=== PATIENT | female | born 1995 | race Caucasian/White ===

== ENCOUNTER 2016-07-05 18:01 | Outpatient (CLI) | payer BC, MEDICAID ==
[~2016-07-05] VITALS: Ht 170.2 cm; Wt 62.3 kg
[~2016-07-05 18:01] MED LIST: LEXAPRO20 MG PO; MOTRIN 800800 MG/TAB PO; PERCOCET 325 MG1 TA2 PO; PRENATAL1 TA7 PO; TAMIFLU 75MG75 MG PO
[2016-07-05 18:37] VITALS: BP 117/74; PULSE 92; TEMP 97.8
[2016-07-05] MEDS ORDERED: LEXAPRO 10MG10 MG (18:45)
== END 2016-07-05 19:00 | disposition home or self-care (01) ==
LOC: LDRO 18:01
DX: Z03.71 Encounter for suspected problem with amniotic cavity and membrane ruled out (principal); Z87.891 Personal history of nicotine dependence

== ENCOUNTER → 2016-08-28 | Outpatient (CLI) | payer BC, MEDICAID ==
[~2016-08-28] VITALS: Ht 170.2 cm; Wt 68.2 kg
[~2016-08-28] MED LIST changes: +AMOXICILLIN 8751 TAB PO; +ASACOL HD800 MG PO; +AZULFIDINE500 MG/TAB PO; +IBU600 MG PO; +LEXAPRO 10MG10 MG; +NORCO 325 MG-51 TAB PO; +PREDNISONE20 MG PO; +TYLENOL 325MG325 MG PO
[2016-08-28 01:30] VITALS: BP 115/65; PULSE 88
[2016-08-28 01:39] VITALS: BP 131/82; PULSE 87; TEMP 98.4
[2016-08-28 02:00] VITALS: BP 123/75; PULSE 78
== END ==
LOC: LDRO 00:49
DX: O47.03 False labor before 37 completed weeks of gestation, third trimester (principal); Z3A.36 36 weeks gestation of pregnancy; Z87.891 Personal history of nicotine dependence

== ENCOUNTER 2016-09-08 16:12 | Inpatient (IN) | payer BC, MEDICAID ==
[2016-09-08] VITALS (24 sets, daily range): BP systolic 99–148; BP diastolic 54–84; PULSE 76–125; TEMP 97.7
[~2016-09-08] VITALS: Ht 170.2 cm; Wt 69.5 kg
[~2016-09-08 16:12] MED LIST changes: -AMOXICILLIN 8751 TAB PO; -ASACOL HD800 MG PO; -AZULFIDINE500 MG/TAB PO; -IBU600 MG PO; -NORCO 325 MG-51 TAB PO; -PREDNISONE20 MG PO; -TYLENOL 325MG325 MG PO
[2016-09-08 18:00] LABS: BASO % 0.4 % (0.0-2.0); EOS # 0.1 (0.0-0.7); EOS % 0.6 % (0-4.0); GRAN # 6.9 (1.4-6.5); GRAN % 63.9 % (42.2-75.2); LYMPH % 27.9 % (20.0-51.0); MEAN CELL VOLUME 81 fl (80.0-100.0); MEAN CORPUSCULAR HGB CONC 30 g/dl (33.0-37.0); MEAN PLATELET VOLUME 12.1 fl (7.4-10.4); MONO # 0.7 (0.1-0.6); MONO % 6.7 % (1.7-9.3); PLATELET COUNT 171 K/mm3 (130-400); RED BLOOD COUNT 3.83 M/mm3 (4.10-5.30); REDCELL DISTRIBUTION WIDTH-CV 15.8 % (11.5-14.5); WHITE BLOOD COUNT 10.8 K/mm3 (4.8-10.8)
[2016-09-08 18:21] LABS: HEMATOCRIT 30.9 % (37.0-47.0); HEMOGLOBIN 9.3 g/dl (12.5-16.0); MEAN CORPUSCULAR HEMOGLOBIN 24 pg (27.0-31.0)
[2016-09-09] VITALS (7 sets, daily range): BP systolic 114–145; BP diastolic 69–81; PULSE 75–115; TEMP 97.9–99.2
[2016-09-09 08:34] LABS: HEMATOCRIT 27.7 % (37.0-47.0); HEMOGLOBIN 8.2 g/dl (12.5-16.0)
[2016-09-10 07:50] VITALS: BP 130/70; PULSE 98; TEMP 98.6
[2016-09-10] MEDS ORDERED: PERCOCET 325 MG1 TA2 PO (08:37)
[2016-09-10] MEDS ORDERED: IBU600 MG PO (08:37)
== END 2016-09-10 11:30 | disposition home or self-care (01) | DRG 767 ==
LOC: LDRO 16:12 → OB 17:45 → LDR 17:45 → OB 09-09 00:30
PROVIDERS: Obstetrics & Gynecology
PROC: 10E0XZZ Delivery of Products of Conception, External Approach (ICD-10-PCS; principal; 2016-09-09)
PROC: 10D17ZZ Extraction of Products of Conception, Retained, Via Natural or Artificial Opening (ICD-10-PCS; 2016-09-09)
DX: O77.0 Labor and delivery complicated by meconium in amniotic fluid (principal); O72.2 Delayed and secondary postpartum hemorrhage; O99.02 Anemia complicating childbirth; D64.9 Anemia, unspecified; Z3A.38 38 weeks gestation of pregnancy; Z37.0 Single live birth
CPT/HCPCS: J2210; J2590; J7120

== ENCOUNTER 2016-11-22 12:17 | Inpatient (IN) | payer MEDICAID ==
[~2016-11-22] VITALS: Ht 170.2 cm; Wt 59.5 kg
[~2016-11-22 12:17] MED LIST changes: +IBU600 MG PO
[2016-11-22 13:01] LABS: PH 6 (5-8); SQUAMOUS EPITHELIAL 0-2 /hpf; URINE APPEARANCE Clear; URINE BACTERIA None Seen /hpf; URINE BILIRUBIN Negative (NEGATIVE); URINE BLOOD Negative (NEGATIVE); URINE COLOR Straw; URINE GLUCOSE Negative (NEGATIVE); URINE KETONE Negative (NEGATIVE); URINE RBC 0-2 /hpf; URINE UROBILINOGEN Negative (NEGATIVE); URINE WBC 0-2 /hpf
[2016-11-22 13:04] LABS: BASO # 0.1 (0.0-0.2); BASO % 0.5 % (0.0-2.0); EOS # 0.1 (0.0-0.7); EOS % 0.6 % (0-4.0); GRAN # 9.6 (1.4-6.5); GRAN % 65.7 % (42.2-75.2); LYMPH # 4.2 (1.2-3.4); LYMPH % 28.8 % (20.0-51.0); MEAN CELL VOLUME 79 fl (80.0-100.0); MEAN CORPUSCULAR HGB CONC 29 g/dl (33.0-37.0); MEAN PLATELET VOLUME 10.9 fl (7.4-10.4); MONO # 0.6 (0.1-0.6); MONO % 4.1 % (1.7-9.3); PLATELET COUNT 313 K/mm3 (130-400); RED BLOOD COUNT 4.54 M/mm3 (4.10-5.30); REDCELL DISTRIBUTION WIDTH-CV 14.9 % (11.5-14.5); WHITE BLOOD COUNT 14.6 K/mm3 (4.8-10.8)
[2016-11-22 13:05] LABS: HEMATOCRIT 35.8 % (37.0-47.0); HEMOGLOBIN 10.2 g/dl (12.5-16.0); MEAN CORPUSCULAR HEMOGLOBIN 22 pg (27.0-31.0)
[2016-11-22 13:13] LABS: ADJUSTED CALCIUM 9.1 mg/dL (8.4-10.2); ALANINE AMINOTRANSFERASE 43 U/L (9-52); ALBUMIN 4.4 gm/dL (3.5-5.0); ALKALINE PHOSPHATASE 82 U/L (50-136); ANION GAP 11 mmol/L (7-16); BILIRUBIN,TOTAL 0.5 mg/dL (0.0-1.0); BLOOD UREA NITROGEN 11 mg/dL (7-17); C-REACTIVE PROTEIN < 0.5 mg/dL (0.0-0.9); CALCIUM 9.4 mg/dL (8.4-10.2); CARBON DIOXIDE 26 mmol/L (22-30); CHLORIDE 102 mmol/L (98-107); CREATININE, serum 0.73 mg/dL (0.52-1.25); GLUCOSE 121 mg/dL (74-106); LIPASE 49 U/L (23-300); POTASSIUM 3.6 mmol/L (3.4-5.0); SODIUM 138 mmol/L (137-145); TOTAL PROTEIN 7.3 gm/dL (6.4-8.2)
[2016-11-22 15:18] VITALS: BP 101/70; PULSE 88; TEMP 98.7
[2016-11-22 17:16] VITALS: BP 111/57; PULSE 80; TEMP 98.8
[2016-11-22 20:54] VITALS: BP 110/63; PULSE 87; TEMP 98.6
[2016-11-23 05:47] VITALS: BP 107/54; PULSE 66; TEMP 98.9
[2016-11-23 06:41] LABS: MEAN CELL VOLUME 80 fl (80.0-100.0); MEAN CORPUSCULAR HGB CONC 28 g/dl (33.0-37.0); MEAN PLATELET VOLUME 11.2 fl (7.4-10.4); PLATELET COUNT 266 K/mm3 (130-400); RED BLOOD COUNT 4.06 M/mm3 (4.10-5.30); REDCELL DISTRIBUTION WIDTH-CV 15.1 % (11.5-14.5); WHITE BLOOD COUNT 13.9 K/mm3 (4.8-10.8)
[2016-11-23 06:49] LABS: ADD PATHOLOGY DIFF REVIEW NO; HEMATOCRIT 32.4 % (37.0-47.0); HEMOGLOBIN 9.2 g/dl (12.5-16.0); MEAN CORPUSCULAR HEMOGLOBIN 23 pg (27.0-31.0)
[2016-11-23 08:32] LABS: BAND 10 % (0-10); NEUTROPHILS 84 % (42.0-75.2); TOTAL CELLS COUNTED 100
[2016-11-23 08:33] LABS: ANISOCYTOSIS 1+; HYPOCHROMIA 1+; MICROCYTOSIS 1+
[2016-11-23 08:34] LABS: PLATELET ESTIMATE NORMAL (NORMAL)
[2016-11-23 09:21] VITALS: BP 110/54; PULSE 100; TEMP 98.2
[2016-11-23] MEDS ORDERED: ASACOL HD800 MG PO (11:39)
[2016-11-23] MEDS ORDERED: TYLENOL 325MG325 MG PO (11:42)
[2016-11-23] MEDS ORDERED: PREDNISONE20 MG PO (11:43)
[2016-11-23] MEDS ORDERED: AMOXICILLIN 8751 TAB PO (11:44)
== END 2016-11-23 11:30 | disposition home or self-care (01) | DRG 387 ==
LOC: COL.ER 12:17 → JCC 14:23
PROVIDERS: Emergency Medicine; Surgery
DX: K50.10 Crohn's disease of large intestine without complications (principal); R93.5 Abnormal findings on diagnostic imaging of other abdominal regions, including retroperitoneum; R10.31 Right lower quadrant pain; Z87.891 Personal history of nicotine dependence
CPT/HCPCS: J1170; J1650; J2543; J2550; J2930; J7030; J7050; J7120; Q9967

== ENCOUNTER 2017-01-09 10:02 | Emergency (ER) | payer MEDICAID ==
[~2017-01-09] VITALS: Ht 172.7 cm; Wt 58.0 kg
[~2017-01-09 10:02] MED LIST changes: +AMOXICILLIN 8751 TAB PO; +ASACOL HD800 MG PO; +PREDNISONE20 MG PO; +TYLENOL 325MG325 MG PO
[2017-01-09 10:06] VITALS: TEMP 98.3
[2017-01-09 11:31] LABS: BASO # 0.1 (0.0-0.2); BASO % 0.4 % (0.0-2.0); EOS % 0.3 % (0-4.0); GRAN # 13.6 (1.4-6.5); GRAN % 86.7 % (42.2-75.2); HEMATOCRIT 37.7 % (37.0-47.0); HEMOGLOBIN 11.1 g/dl (12.5-16.0); LYMPH # 1.2 (1.2-3.4); LYMPH % 7.8 % (20.0-51.0); MEAN CELL VOLUME 79 fl (80.0-100.0); MEAN CORPUSCULAR HEMOGLOBIN 23 pg (27.0-31.0); MEAN CORPUSCULAR HGB CONC 29 g/dl (33.0-37.0); MEAN PLATELET VOLUME 10.7 fl (7.4-10.4); MONO # 0.7 (0.1-0.6); MONO % 4.5 % (1.7-9.3); PLATELET COUNT 308 K/mm3 (130-400); REDCELL DISTRIBUTION WIDTH-CV 16.5 % (11.5-14.5); WHITE BLOOD COUNT 15.7 K/mm3 (4.8-10.8)
[2017-01-09 11:38] LABS: ADJUSTED CALCIUM 8.8 mg/dL (8.4-10.2); ALANINE AMINOTRANSFERASE 27 U/L (9-52); ALBUMIN 4.8 gm/dL (3.5-5.0); ALKALINE PHOSPHATASE 82 U/L (50-136); ANION GAP 9 mmol/L (7-16); BILIRUBIN,TOTAL 0.5 mg/dL (0.0-1.0); BLOOD UREA NITROGEN 12 mg/dL (7-17); C-REACTIVE PROTEIN < 0.5 mg/dL (0.0-0.9); CALCIUM 9.4 mg/dL (8.4-10.2); CARBON DIOXIDE 24 mmol/L (22-30); CHLORIDE 104 mmol/L (98-107); CREATININE, serum 0.75 mg/dL (0.52-1.25); GLUCOSE 96 mg/dL (74-106); LIPASE 41 U/L (23-300); POTASSIUM 3.8 mmol/L (3.4-5.0); SODIUM 137 mmol/L (137-145); TOTAL PROTEIN 7.8 gm/dL (6.4-8.2)
[2017-01-09 11:45] LABS: PH 5 (5-8); URINE APPEARANCE Clear; URINE BACTERIA Rare /hpf; URINE BILIRUBIN Negative (NEGATIVE); URINE BLOOD Negative (NEGATIVE); URINE COLOR Yellow; URINE GLUCOSE Negative (NEGATIVE); URINE KETONE Negative (NEGATIVE); URINE RBC 0-2 /hpf; URINE UROBILINOGEN Negative (NEGATIVE)
[2017-01-09 14:29] VITALS: BP 107/63; PULSE 92
[2017-01-09] MEDS ORDERED: AZULFIDINE500 MG/TAB PO (14:43)
[2017-01-09] MEDS ORDERED: PREDNISONE20 MG PO (14:44)
[2017-01-09] MEDS ORDERED: NORCO 325 MG-51 TAB PO (14:44)
== END 2017-01-09 14:53 | disposition home or self-care (01) ==
LOC: COL.ER 10:02
PROVIDERS: Emergency Medicine
DX: K50.90 Crohn's disease, unspecified, without complications (principal)
CPT/HCPCS: J2405; J3010; J7030; Q9967

== ENCOUNTER 2017-02-26 17:26 | Emergency (ER) | payer OTHER, MEDICAID ==
[~2017-02-26] VITALS: Ht 170.2 cm; Wt 54.5 kg
[~2017-02-26 17:26] MED LIST changes: +AZULFIDINE500 MG/TAB PO; +NORCO 325 MG-51 TAB PO
[2017-02-26 17:29] VITALS: TEMP 99
[2017-02-26 18:13] LABS: BASO # 0.1 (0.0-0.2); BASO % 0.5 % (0.0-2.0); EOS # 0.1 (0.0-0.7); EOS % 0.6 % (0-4.0); GRAN # 8.9 (1.4-6.5); GRAN % 68.5 % (42.2-75.2); HEMATOCRIT 37.1 % (37.0-47.0); LYMPH # 3.2 (1.2-3.4); LYMPH % 24.7 % (20.0-51.0); MEAN CELL VOLUME 81 fl (80.0-100.0); MEAN CORPUSCULAR HEMOGLOBIN 24 pg (27.0-31.0); MEAN CORPUSCULAR HGB CONC 30 g/dl (33.0-37.0); MEAN PLATELET VOLUME 10.5 fl (7.4-10.4); MONO # 0.7 (0.1-0.6); MONO % 5.5 % (1.7-9.3); PLATELET COUNT 361 K/mm3 (130-400); WHITE BLOOD COUNT 12.9 K/mm3 (4.8-10.8)
[2017-02-26 18:20] LABS: HEMOGLOBIN 11.1 g/dl (12.5-16.0)
[2017-02-26 18:29] LABS: ALBUMIN 4.4 gm/dL (3.5-5.0); BILIRUBIN,TOTAL 0.5 mg/dL (0.0-1.0); C-REACTIVE PROTEIN 1.3 mg/dL (0.0-0.9); CALCIUM 9.3 mg/dL (8.4-10.2); CREATININE, serum 0.72 mg/dL (0.52-1.25); POTASSIUM 3.4 mmol/L (3.4-5.0); TOTAL PROTEIN 7.6 gm/dL (6.4-8.2)
[2017-02-26] MEDS ORDERED: ZOFRAN 4MG T4 MG/TAB PO (19:06)
[2017-02-26] MEDS ORDERED: PREDNISONE20 MG PO (19:06)
[2017-02-26 19:21] VITALS: BP 101/67; PULSE 77
== END 2017-02-26 19:20 | disposition home or self-care (01) ==
LOC: COL.ER 17:26
PROVIDERS: Physician Assistant
DX: R10.31 Right lower quadrant pain (principal); Z87.19 Personal history of other diseases of the digestive system
CPT/HCPCS: J1885; J2405; J7030

== ENCOUNTER 2017-07-03 20:02 | Observation (INO) | payer MEDICAID ==
[~2017-07-03] VITALS: Ht 170.2 cm; Wt 53.3 kg
[~2017-07-03 20:02] MED LIST changes: +ZOFRAN 4MG T4 MG/TAB PO
[2017-07-03 22:02] LABS: COLLECTION METHOD CLEAN CATCH
[2017-07-03 22:07] LABS: BASO # 0.1 (0.0-0.2); BASO % 0.4 % (0.0-2.0); EOS % 0.1 % (0-4.0); GRAN # 13.6 (1.4-6.5); GRAN % 81.7 % (42.2-75.2); HEMATOCRIT 40.2 % (37.0-47.0); HEMOGLOBIN 12.5 g/dl (12.5-16.0); LYMPH # 1.8 (1.2-3.4); LYMPH % 10.8 % (20.0-51.0); MEAN CELL VOLUME 86 fl (80.0-100.0); MEAN CORPUSCULAR HEMOGLOBIN 27 pg (27.0-31.0); MEAN CORPUSCULAR HGB CONC 31 g/dl (33.0-37.0); MONO # 1.1 (0.1-0.6); MONO % 6.7 % (1.7-9.3); PLATELET COUNT 258 K/mm3 (130-400); RED BLOOD COUNT 4.69 M/mm3 (4.10-5.30); REDCELL DISTRIBUTION WIDTH-CV 14.9 % (11.5-14.5)
[2017-07-03 22:10] LABS: PH 8 (5-8); SQUAMOUS EPITHELIAL 0-2 /hpf; URINE APPEARANCE Clear; URINE BACTERIA None Seen /hpf; URINE BILIRUBIN Negative (NEGATIVE); URINE BLOOD 1+ (NEGATIVE); URINE COLOR Straw; URINE GLUCOSE Negative (NEGATIVE); URINE KETONE Negative (NEGATIVE); URINE LEUKOCYTE ESTERASE 1+ (NEGATIVE); URINE NITRATE Negative (NEGATIVE); URINE PROTEIN(semi-quant) Negative (NEGATIVE); URINE RBC 0-2 /hpf; URINE UROBILINOGEN Negative (NEGATIVE)
[2017-07-03 22:19] LABS: ALBUMIN 4.9 gm/dL (3.5-5.0); BILIRUBIN,TOTAL 0.6 mg/dL (0.0-1.0); C-REACTIVE PROTEIN 2.1 mg/dL (0.0-0.9); CALCIUM 9.7 mg/dL (8.4-10.2); CREATININE, serum 0.81 mg/dL (0.52-1.25); POTASSIUM 3.6 mmol/L (3.4-5.0); TOTAL PROTEIN 7.9 gm/dL (6.4-8.2)
[2017-07-04] VITALS (7 sets, daily range): BP systolic 99–118; BP diastolic 44–59; PULSE 68–93; TEMP 97.8–99.3
[2017-07-04 11:11] LABS: BASO % 0.5 % (0.0-2.0); EOS % 0.4 % (0-4.0); GRAN # 5.5 (1.4-6.5); GRAN % 71.6 % (42.2-75.2); LYMPH # 1.3 (1.2-3.4); LYMPH % 17.4 % (20.0-51.0); MEAN CELL VOLUME 87 fl (80.0-100.0); MEAN CORPUSCULAR HGB CONC 31 g/dl (33.0-37.0); MEAN PLATELET VOLUME 10.9 fl (7.4-10.4); MONO # 0.8 (0.1-0.6); MONO % 9.8 % (1.7-9.3); PLATELET COUNT 173 K/mm3 (130-400); RED BLOOD COUNT 3.73 M/mm3 (4.10-5.30); REDCELL DISTRIBUTION WIDTH-CV 14.8 % (11.5-14.5)
[2017-07-04 11:31] LABS: HEMATOCRIT 32.5 % (37.0-47.0); HEMOGLOBIN 9.9 g/dl (12.5-16.0); MEAN CORPUSCULAR HEMOGLOBIN 27 pg (27.0-31.0)
[2017-07-05 05:13] VITALS: BP 102/45; PULSE 75; TEMP 97.9
[2017-07-05 09:35] VITALS: BP 122/61; PULSE 69; TEMP 98.1
[2017-07-05 13:43] VITALS: BP 106/39; PULSE 75; TEMP 98.6
== END 2017-07-05 15:35 | disposition home or self-care (01) ==
LOC: COL.ER 20:02 → SURG 23:11
PROVIDERS: Emergency Medicine; Surgery
DX: K50.90 Crohn's disease, unspecified, without complications (principal); D50.9 Iron deficiency anemia, unspecified; E44.0 Moderate protein-calorie malnutrition; R63.6 Underweight; Z91.19 Patient's noncompliance with other medical treatment and regimen; F41.9 Anxiety disorder, unspecified; F32.9 Major depressive disorder, single episode, unspecified
CPT/HCPCS: G0378; J0696; J1170; J2405; J7030; J7050; Q9967

== ENCOUNTER 2017-07-09 14:44 | Inpatient (IN) | payer SELFPAY ==
[~2017-07-09] VITALS: Ht 170.2 cm; Wt 51.7 kg
[2017-07-11] VITALS (11 sets, daily range): BP systolic 102–128; BP diastolic 62–73; PULSE 68–102; TEMP 97.3–98.1
[2017-07-11] MEDS ORDERED: LEVAQUIN 5500 MG/TA1 PO (09:29)
[2017-07-11] MEDS ORDERED: NORCO 325 MG-51 TAB PO (09:30)
[2017-07-11] MEDS ORDERED: FLAGYL500 MG PO (09:32)
[2017-07-12] VITALS (7 sets, daily range): BP systolic 100–135; BP diastolic 43–71; PULSE 58–89; TEMP 97.8–98.8
[2017-07-12 07:27] LABS: HEMATOCRIT 36.2 % (37.0-47.0); HEMOGLOBIN 11.1 g/dl (12.5-16.0)
[2017-07-12 07:33] LABS: CALCIUM 9.2 mg/dL (8.4-10.2); CREATININE, serum 0.8 mg/dL (0.52-1.25); MAGNESIUM 2.1 mg/dL (1.6-2.3); PHOSPHOROUS 3.9 mg/dL (2.5-4.5); POTASSIUM 3.7 mmol/L (3.4-5.0)
[2017-07-13 01:51] VITALS: BP 123/51; PULSE 83; TEMP 98.6
[2017-07-13 05:21] VITALS: BP 108/53; PULSE 75; TEMP 98.2
[2017-07-13 09:33] VITALS: BP 106/55; PULSE 66; TEMP 97.8
[2017-07-13 14:00] VITALS: BP 111/59; PULSE 69; TEMP 98.2
[2017-07-13 17:41] VITALS: BP 109/55; PULSE 65; TEMP 98.1
[2017-07-13 21:46] VITALS: BP 108/53; PULSE 73; TEMP 98.6
[2017-07-14 04:30] VITALS: BP 105/64; PULSE 81; TEMP 98
[2017-07-14 10:13] VITALS: BP 105/60; PULSE 80; TEMP 97.8
[2017-07-14 13:30] VITALS: BP 99/52; PULSE 74; TEMP 98.1
== END 2017-07-14 15:00 | disposition home or self-care (01) | DRG 330 ==
LOC: INPTSU 07-11 08:29 → SURG 07-11 10:45 → JCC 07-11 14:05
PROVIDERS: Surgery
PROC: 8E0W4CZ Robotic Assisted Procedure of Trunk Region, Percutaneous Endoscopic Approach (ICD-10-PCS; 2017-07-11)
PROC: 0DTH4ZZ Resection of Cecum, Percutaneous Endoscopic Approach (ICD-10-PCS; principal; 2017-07-11 10:45)
DX: K50.80 Crohn's disease of both small and large intestine without complications (principal); E44.0 Moderate protein-calorie malnutrition; Z68.1 Body mass index [BMI] 19.9 or less, adult; Z91.14 Patient's other noncompliance with medication regimen
CPT/HCPCS: J0690; J1100; J1650; J1885; J2250; J2405; J2550; J2704; J2710; J3010; J7120

== ENCOUNTER 2018-03-15 14:11 | Emergency (ER) | payer MEDICAID ==
[~2018-03-15] VITALS: Ht 170.2 cm; Wt 52.7 kg
[~2018-03-15 14:11] MED LIST changes: +FLAGYL500 MG PO; +LEVAQUIN 5500 MG/TA1 PO
[2018-03-15 14:15] VITALS: TEMP 98.3
[2018-03-15 15:14] LABS: TRICYCLIC ANTIDEPRESS URINE NEGATIVE
[2018-03-15 15:38] VITALS: BP 110/61; PULSE 61
== END 2018-03-15 15:38 | disposition home or self-care (01) ==
LOC: COL.ER 14:11
PROVIDERS: Nurse Practitioner
DX: R41.3 Other amnesia (principal)

== ENCOUNTER → 2018-04-09 | Outpatient (CLI) | payer MEDICAID | LOC: COL.CARD 07:21 | DX: R00.2 Palpitations (principal) ==

== ENCOUNTER → 2018-04-14 | Outpatient (CLI) | payer MEDICAID | LOC: COL.VAS 10:36 | DX: R00.2 Palpitations (principal) ==

== ENCOUNTER 2018-08-01 10:00 | Day surgery (SDC) | payer SELFPAY ==
[~2018-08-01] VITALS: Ht 170.2 cm; Wt 52.5 kg
[2018-08-01 13:37] VITALS: BP 107/74; PULSE 99; TEMP 98.2
[2018-08-01 14:40] VITALS: BP 105/70; PULSE 100; TEMP 97.5
--- NOTE | 2018-08-01 14:40 | NUR ---
Pt to [facility] via cart from [facility]O. Pt awake but drowsy. Pt ambulates to recliner with stand by assitance. Warm blankets provided. Step mother in room. Muffin and pepsi given per pt request. Will continue to monitor. Call light within reach.
[2018-08-01 14:55] VITALS: BP 99/66; PULSE 81
--- NOTE | 2018-08-01 14:55 | NUR ---
Pt continues to rest. Denies needs. Call light within reach.
[2018-08-01 15:10] VITALS: BP 92/69; PULSE 80
--- NOTE | 2018-08-01 15:10 | NUR ---
Pt continues to rest. Denies needs. Call light within reach.
[2018-08-01 15:25] VITALS: BP 102/56; PULSE 79
--- NOTE | 2018-08-01 15:25 | NUR ---
Discharge instructions reviewed. Pt voices understanding. IV site discontinued with all parts intact. Pt up to dress. Call light within reach.
--- NOTE | 2018-08-01 15:55 | NUR ---
Pt escorted to private car via wheel chair. Pt accompanied home by her step mother.
== END 2018-08-01 15:55 | disposition home or self-care (01) ==
LOC: SDCO 10:00
DX: K50.00 Crohn's disease of small intestine without complications (principal); R11.0 Nausea; Z79.899 Other long term (current) drug therapy; F32.9 Major depressive disorder, single episode, unspecified; F41.9 Anxiety disorder, unspecified; D50.9 Iron deficiency anemia, unspecified; Z87.891 Personal history of nicotine dependence
CPT/HCPCS: J2704; J7030

== ENCOUNTER 2018-11-24 16:01 | Emergency (ER) | payer SELFPAY ==
[~2018-11-24] VITALS: Ht 170.2 cm; Wt 52.7 kg
[2018-11-24 16:16] VITALS: BP 121/64; TEMP 98.2
[2018-11-24] MEDS ORDERED: ASACOL HD800 MG (16:37)
[2018-11-24 17:41] LABS: BASO # 0.1 (0.0-0.2); BASO % 0.8 % (0.0-2.0); EOS # 0.1 (0.0-0.7); EOS % 0.8 % (0-4.0); GRAN # 4.4 (1.4-6.5); GRAN % 60.1 % (42.2-75.2); HEMATOCRIT 43.9 % (37.0-47.0); HEMOGLOBIN 14.5 g/dl (12.5-16.0); LYMPH # 2.3 (1.2-3.4); LYMPH % 30.7 % (20.0-51.0); MEAN CELL VOLUME 97 fl (80.0-100.0); MEAN CORPUSCULAR HEMOGLOBIN 32 pg (27.0-31.0); MEAN CORPUSCULAR HGB CONC 33 g/dl (33.0-37.0); MEAN PLATELET VOLUME 10.5 fl (7.4-10.4); MONO # 0.5 (0.1-0.6); MONO % 7.3 % (1.7-9.3); PLATELET COUNT 264 K/mm3 (130-400); RED BLOOD COUNT 4.55 M/mm3 (4.10-5.30)
[2018-11-24 17:50] LABS: ALBUMIN 4.1 gm/dL (3.5-5.0); BILIRUBIN,TOTAL 0.4 mg/dL (0.0-1.0); CREATININE, serum 0.74 (0.52-1.25); POTASSIUM 3.8 mmol/L (3.4-5.0); TOTAL PROTEIN 7.2 gm/dL (6.4-8.2)
[2018-11-24 18:01] LABS: MONOSCREEN NEGATIVE
[2018-11-24 18:34] LABS: STREP SCREEN NEGATIVE
[2018-11-24] MEDS ORDERED: PREDNISONE20 MG PO (18:44)
[2018-11-24 18:55] VITALS: PULSE 84
== END 2018-11-24 18:58 | disposition home or self-care (01) ==
LOC: COL.ER 16:01
PROVIDERS: Emergency Medicine
DX: J02.9 Acute pharyngitis, unspecified (principal); E86.0 Dehydration; K50.90 Crohn's disease, unspecified, without complications
CPT/HCPCS: J1885; J2930; J7030